=== PATIENT | female | born 1955 | race Caucasian/White ===

== ENCOUNTER 2016-11-29 17:30 | Emergency (ER) | payer BC ==
[~2016-11-29] VITALS: Ht 167.6 cm; Wt 89.8 kg
--- NOTE | ~2016-11-29 | EKG ---
[address] [address] ELECTROCARDIOGRAM REPORT Name: JOSE YANG [facility] [id number] Admission: 11/29/16 Attend Phys: Discharge: 11/29/16 Date of : 55 Report #: [id number] THIS REPORT FOR: //name// [facility] ED Test Date: 2016-11-29 Test Time: 17:42:41 Pat Name: JOSE YANG Department: Room: Gender: F [employer]er: MZOOK : 1955 Requested By: Marita Gomez Order Number: [id number] MD: Humberto Quiñones Measurements Intervals [place] Rate: 117 P: 51 FL: 134 QRS: 28 QRSD: 78 T: -8 QT: 295 QTc: 412 Interpretive Statements Sinus tachycardia Borderline T abnormalities, anterior leads Compared to ECG 04/08/2007 23:58:07 T-wave abnormality now present Sinus rhythm no longer present Electronically Signed On 11-30-2016 13:54:08 CDT by Humberto Quiñones [email or web address] <ELECTRONICALLY SIGNED> By: Humberto Quiñones MD 11/30/16 1354 174 174 Humberto Quiñones MD /[facility]
[~2016-11-29 17:30] MED LIST: AMARYL1 MG; CELEXA 10 MG TA10 M1; CLEOCIN HCL150 MG PO; CRESTOR5 MG; KEFLEX500 M1 PO; KOMBIGLYZE XR1 EAC2; NORCO 5-325 TA1 EACH PO
[2016-11-29 18:32] LABS: HEMATOCRIT 39.2 % (37.0-47.0); MCH 25.5 pg (26.0-34.0); MCHC 33.1 g/dL (28.0-37.0); MCV 76.9 fL (80.0-100.0); PLATELET COUNT 332 thou/uL (150-400); RDW 14.3 % (10.5-14.5); WBC 12.5 thou/uL (4.0-11.0)
[2016-11-29 18:33] LABS: MANUAL DIFF YES
[2016-11-29 18:46] LABS: ANION GAP 8 mmol/L (7-16); BUN 9 mg/dL (7-18); CALCIUM 8.8 mg/dL (8.5-10.1); CHLORIDE 99 mmol/L (98-107); CO2 27 mmol/L (21-32); CREATININE 0.8 mg/dL (0.6-1.0); GLUCOSE 184 mg/dL (74-106); POTASSIUM 3.8 mmol/L (3.5-5.1); SODIUM 134 mmol/L (136-145)
[2016-11-29 18:54] LABS: ALBUMIN 3.2 g/dL (3.4-5.0); ALKALINE PHOSPHATASE 171 U/L (46-116); SGOT 60 U/L (15-37); SGPT 91 U/L (30-65); TOTAL BILIRUBIN 1.2 mg/dL (<0.1-1.0); TOTAL PROTEIN 7.4 g/dL (6.4-8.2); TROPONIN-I < 0.04 ng/mL (<0.04-0.07)
[2016-11-29 19:02] LABS: ABSOLUTE NEUTROPHILS 6.4 thou/uL (1.4-8.2); ATYPICAL LYMPHS 8 %; TOTAL CELL COUNT 100
[2016-11-29 19:43] LABS: URINE BILIRUBIN 1+ (Negative); URINE BLOOD NEGATIVE (Negative); URINE COLOR YELLOW; URINE GLUCOSE-RANDOM* NEGATIVE (Negative); URINE KETONES TRACE (Negative); URINE NITRITE NEGATIVE (Negative); URINE PROTEIN (DIPSTICK) 1+ (Negative)
[2016-11-29 19:49] LABS: ICTOTEST (BILI CONFIRMATORY) Negative (Negative)
[2016-11-29 19:50] LABS: CASTS None Seen /LPF (None Seen); CRYSTALS None Seen /LPF (None Seen); SQUAMOUS 0-3 Few /LPF (0-3)
[2016-11-29 19:51] LABS: BACTERIA 1-9 Few /HPF (None Seen); URINE RBC None Seen /HPF (0-2); URINE WBC 0-5 Rare /HPF (0-5)
[2016-11-29 22:22] VITALS: BP 98/68
== END 2016-11-29 22:23 | disposition home or self-care (01) ==
LOC: ER 17:30
PROVIDERS: Physician Assistant
DX: N39.0 Urinary tract infection, site not specified (principal); I95.1 Orthostatic hypotension; E11.9 Type 2 diabetes mellitus without complications; Z88.0 Allergy status to penicillin; F10.99 Alcohol use, unspecified with unspecified alcohol-induced disorder

== ENCOUNTER 2016-12-07 13:01 | Emergency (ER) | payer BC ==
[~2016-12-07] VITALS: Ht 167.6 cm; Wt 88.5 kg
--- NOTE | ~2016-12-07 | EKG ---
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
[~2016-12-07 13:01] MED LIST changes: -AMARYL1 MG; +AMARYL1 MG PO; -CELEXA 10 MG TA10 M1; +CELEXA 10 MG TA10 M1 PO; -CRESTOR5 MG; +CRESTOR5 MG PO
[2016-12-07 14:36] LABS: ABSOLUTE NEUTROPHILS 4.4 thou/uL (1.4-8.2); BASOPHILS 0.7 % (0.0-2.0); EOSINOPHILS 0.8 % (0.0-3.0); HEMATOCRIT 37.4 % (37.0-47.0); HEMOGLOBIN 12.3 gm/dL (12.0-15.0); LYMPHOCYTES 52.9 % (24.0-44.0); MCH 25.5 pg (26.0-34.0); MCHC 32.9 g/dL (28.0-37.0); MCV 77.4 fL (80.0-100.0); MONOCYTES 6.4 % (1.0-8.0); PLATELET COUNT 285 thou/uL (150-400); POLYS 39.2 % (36.0-66.0); RBC 4.83 mil/uL (4.20-5.00); WBC 11.2 thou/uL (4.0-11.0)
[2016-12-07 14:37] LABS: MANUAL DIFF NO
[2016-12-07 14:47] LABS: ANION GAP 6 mmol/L (7-16); BUN 10 mg/dL (7-18); CALCIUM 8.4 mg/dL (8.5-10.1); CHLORIDE 102 mmol/L (98-107); CO2 28 mmol/L (21-32); CREATININE 0.9 mg/dL (0.6-1.0); GLUCOSE 247 mg/dL (74-106); POTASSIUM 3.9 mmol/L (3.5-5.1); SODIUM 136 mmol/L (136-145)
[2016-12-07 14:54] LABS: ALBUMIN 2.7 g/dL (3.4-5.0); ALKALINE PHOSPHATASE 139 U/L (46-116); SGOT 42 U/L (15-37); SGPT 58 U/L (30-65); TOTAL PROTEIN 6.8 g/dL (6.4-8.2); TROPONIN-I < 0.04 ng/mL (<0.04-0.07)
[2016-12-07 15:49] LABS: URINE BILIRUBIN NEGATIVE (Negative); URINE BLOOD NEGATIVE (Negative); URINE COLOR YELLOW; URINE GLUCOSE-RANDOM* NEGATIVE (Negative); URINE KETONES NEGATIVE (Negative); URINE LEUKOCYTES-REFLEX NEGATIVE (Negative); URINE PROTEIN (DIPSTICK) NEGATIVE (Negative); URINE SPECIFIC GRAVITY <= 1.005 (1.003-1.035); URINE UROBILINOGEN 0.2 E.U./dl (0.2-1.0)
[2016-12-07 17:30] VITALS: BP 136/89
== END 2016-12-07 17:37 | disposition home or self-care (01) ==
LOC: ER 13:01
PROVIDERS: Physician Assistant
DX: R53.1 Weakness (principal); E11.9 Type 2 diabetes mellitus without complications; R10.13 Epigastric pain; F10.99 Alcohol use, unspecified with unspecified alcohol-induced disorder; Z88.0 Allergy status to penicillin

== ENCOUNTER 2018-05-16 07:52 | Emergency (ER) | payer BC ==
[~2018-05-16] VITALS: Ht 167.6 cm; Wt 87.5 kg
[2018-05-16] MEDS ORDERED: VICTOZA0.6 MG/0.1 SUBQ (08:13)
[2018-05-16] MEDS ORDERED: METFORMIN HCL500 MG PO (08:13)
[2018-05-16 08:21] LABS: URINE BILIRUBIN NEGATIVE (Negative); URINE BLOOD NEGATIVE (Negative); URINE CLARITY CLEAR; URINE COLOR YELLOW; URINE GLUCOSE-RANDOM* NEGATIVE (Negative); URINE KETONES NEGATIVE (Negative); URINE NITRITE-REFLEX NEGATIVE (Negative); URINE PROTEIN (DIPSTICK) NEGATIVE (Negative); URINE UROBILINOGEN 0.2 E.U./dl (0.2-1.0)
[2018-05-16 08:23] LABS: URINE LEUKOCYTES-REFLEX 1+ (Negative)
[2018-05-16 08:32] LABS: BACTERIA-REFLEX 1-9 Few /HPF (None Seen); SQUAMOUS >10 Many /LPF (0-3); URINE RBC 0-2 Rare /HPF (0-2); URINE WBC-REFLEX 6-15 Few /HPF (0-5)
[2018-05-16 08:33] LABS: CASTS None Seen /LPF (None Seen); CRYSTALS None Seen /LPF (None Seen); RENAL EPITHELIAL CELLS 0-3 Few /LPF (None Seen); TRANSITIONAL EPITHEL CELL 0-3 Few /LPF (None Seen)
[2018-05-16] MEDS ORDERED: MACROBID 100 M100 M1 PO (09:23)
[2018-05-16 09:26] VITALS: BP 137/84
== END 2018-05-16 09:30 | disposition home or self-care (01) ==
LOC: ER 07:52
PROVIDERS: Emergency Medicine
DX: M62.830 Muscle spasm of back (principal); N39.0 Urinary tract infection, site not specified; E11.9 Type 2 diabetes mellitus without complications; Z98.890 Other specified postprocedural states; Z88.0 Allergy status to penicillin

== ENCOUNTER 2018-07-16 08:08 | Emergency (ER) | payer BC ==
[~2018-07-16] VITALS: Ht 167.6 cm; Wt 90.7 kg
[~2018-07-16 08:08] MED LIST changes: +MACROBID 100 M100 M1 PO; +METFORMIN HCL500 MG PO; +VICTOZA0.6 MG/0.1 SUBQ
[2018-07-16] MEDS ORDERED: ZANAFLEX4 MG PO (08:23)
[2018-07-16] MEDS ORDERED: MOBIC7.5 MG PO (08:23)
[2018-07-16 09:16] LABS: URINE BILIRUBIN NEGATIVE (Negative); URINE BLOOD NEGATIVE (Negative); URINE CLARITY CLEAR; URINE COLOR YELLOW; URINE GLUCOSE-RANDOM* NEGATIVE (Negative); URINE KETONES 1+ (Negative); URINE NITRITE-REFLEX NEGATIVE (Negative); URINE PROTEIN (DIPSTICK) NEGATIVE (Negative); URINE SPECIFIC GRAVITY 1.025 (1.005-1.035); URINE UROBILINOGEN 0.2 E.U./dl (0.2-1.0)
[2018-07-16 09:17] LABS: URINE LEUKOCYTES-REFLEX 2+ (Negative)
[2018-07-16 09:27] LABS: SQUAMOUS >10 Many /LPF (0-3)
[2018-07-16 09:28] LABS: CASTS None Seen /LPF (None Seen); CRYSTALS None Seen /LPF (None Seen); URINE RBC None Seen /HPF (0-2)
[2018-07-16] MEDS ORDERED: DIFLUCAN150 MG PO (09:58)
[2018-07-16] MEDS ORDERED: MACROBID 100 M100 M2 PO (09:58)
[2018-07-16] MEDS ORDERED: VALIUM5 MG PO (09:58)
[2018-07-16 10:52] VITALS: BP 164/113
== END 2018-07-16 10:28 | disposition home or self-care (01) ==
LOC: ER 08:08
PROVIDERS: Emergency Medicine
DX: N39.0 Urinary tract infection, site not specified (principal); M62.830 Muscle spasm of back; E11.9 Type 2 diabetes mellitus without complications; Z88.0 Allergy status to penicillin; Z98.890 Other specified postprocedural states